=== PATIENT | female | born 1955 | race Two or more races ===

== ENCOUNTER → 2024-03-13 | Outpatient (CLI) | payer OTHER, SELFPAY ==
[2024-03-13 12:42] LABS: Alanine Aminotransferase 11 U/L (10-49); Albumin, Serum 4.5 gm/dL (3.4-4.8); Albumin/Globulin Ratio 1.7 (1.2-2.2); Alkaline Phosphatase 103 U/L (46-116); Anion Gap 6 (7-16); Aspartate Amino Transferase 13 U/L (0-34); BUN/Creatinine Ratio 17 Ratio (12-20); Bilirubin,Total 0.5 mg/dL (0.3-1.2); Blood Urea Nitrogen 12 mg/dL (9-23); Calcium 9.2 mg/dL (8.3-10.6); Calcium (Corrected) 9.2 mg/dL (8.5-10.1); Carbon Dioxide 31.3 mMol/L (20.0-31.0); Chloride 104 mMol/L (98-107); Creatinine (Component) 0.7 mg/dL (0.6-1.3); Globulin 2.7 gm/dL (2.3-3.5); Glucose 105 mg/dL (74-106); Osmolality,Calculated 280 (275-295); Potassium 4.6 mMol/L (3.4-5.1); Sodium 141 mMol/L (136-145); Total Protein 7.2 gm/dL (5.7-8.2); eGFR > 60 See Note
== END | disposition home or self-care (01) ==
LOC: COPL 11:34
PROVIDERS: PCP Internal Medicine; Referring Provider Internal Medicine; Visit Provider Internal Medicine
DX: E78.00 Pure hypercholesterolemia, unspecified (principal); K21.9 Gastro-esophageal reflux disease without esophagitis; K59.00 Constipation, unspecified; M19.049 Primary osteoarthritis, unspecified hand; M54.59 Other low back pain; M65.331 Trigger finger, right middle finger; M77.00 Medial epicondylitis, unspecified elbow; M81.0 Age-related osteoporosis without current pathological fracture; Z79.83 Long term (current) use of bisphosphonates
CPT/HCPCS: 36415; 80053

== ENCOUNTER → 2024-04-17 | Outpatient (CLI) | payer OTHER, SELFPAY ==
--- NOTE | 2024-04-17 11:30 | XR_ITS ---
Examination: Abdomen sonogram, Limited Date and time of exam: April 17, 2024 1141 hours INDICATIONS: Onset right upper abdominal pain beginning 4 months ago Technique: Real-time ybarra scale transabdominal sonographic images of the upper abdomen obtained. Findings: Absent gallbladder Common bile duct 0.8 cm no stones Pancreatic head 2.4 cm Liver 13.1 cm fatty infiltration no focal liver lesions Normal hepatopedal portal venous flow patent IVC IMPRESSION: Absent gallbladder Common bile duct 0.8 cm no common bile duct stones noted
== END | disposition home or self-care (01) ==
PROVIDERS: PCP Internal Medicine; Referring Provider Specialist; Visit Provider Specialist
DX: R10.32 Left lower quadrant pain (principal); R11.0 Nausea; R10.13 Epigastric pain; Z90.49 Acquired absence of other specified parts of digestive tract
CPT/HCPCS: 76705

== ENCOUNTER 2024-05-10 10:00 | Day surgery (SDC) | payer OTHER, SELFPAY ==
[2024-05-09 14:02] VITALS: BMI 28.2
[2024-05-10] VITALS (8 sets, daily range): BP systolic 127–177; BP diastolic 57–85; PULSE 45–61; RESP 13–20; TEMP 36.3–36.8; O2SAT 94–98; BMI 26.0
[2024-05-10] MEDS: SODIUM CHLORIDE 0.9% 500 ML 500 ML 20 ML IV (12:10)
[2024-05-10] MEDS: MIDAZOLAM INJ 1 MG/ML VIAL 2 ML 2 MG IV (12:15)
[2024-05-10] MEDS: fentaNYL CIT INJ 50 mCg/ML AMP 2ML IV (12:15)
[2024-05-10] MEDS: DiphenhydrAMINE INJ 50 MG/ML VIAL 25 MG IV (12:15)
== END 2024-05-10 13:10 | disposition home or self-care (01) ==
PROVIDERS: PCP Internal Medicine; Referring Provider Specialist; Visit Provider Specialist
PROC: (CPT 43239; principal; 2024-05-10 11:15)
DX: K20.90 Esophagitis, unspecified without bleeding (principal); I85.00 Esophageal varices without bleeding; K29.70 Gastritis, unspecified, without bleeding
CPT/HCPCS: 43239; A4649; J1200; J2250; J3010; J7040

== ENCOUNTER → 2024-06-12 | Outpatient (CLI) | payer OTHER, SELFPAY ==
[2024-06-12 12:02] LABS: Alanine Aminotransferase < 7 U/L (10-49); Albumin, Serum 4.6 gm/dL (3.4-4.8); Alkaline Phosphatase 126 U/L (46-116); Anion Gap 7 (7-16); Aspartate Amino Transferase 15 U/L (0-34); BUN/Creatinine Ratio 11 Ratio (12-20); Bilirubin,Direct 0.2 mg/dL (0.0-0.3); Bilirubin,Total 0.8 mg/dL (0.3-1.2); Blood Urea Nitrogen 8 mg/dL (9-23); Calcium 9.1 mg/dL (8.3-10.6); Carbon Dioxide 28.5 mMol/L (20.0-31.0); Cardiac Risk Estimate 4.7 RATIO (3.7-5.6); Chloride 105 mMol/L (98-107); Cholesterol 214 mg/dL (132-200); Creatinine (Component) 0.7 mg/dL (0.6-1.3); Free T4 (Free Thyroxine) 1.06 ng/dL (0.89-1.76); Glucose 105 mg/dL (74-106); HDL Cholesterol 46 mg/dL (40-60); LDL Cholesterol,Calculated 139 mg/dL (0-130); Osmolality,Calculated 277 (275-295); Sodium 140 mMol/L (136-145); Total Protein 7.5 gm/dL (5.7-8.2); Triglycerides 144 mg/dL (30-150); eGFR > 60 See Note
[2024-06-12 12:08] LABS: Basophils % (Auto) 0 % (0-2.5); Eosinophils % (Auto) 1 % (0-10); Hematocrit 40.4 % (36.0-46.0); Hemoglobin 13.5 g/dL (12.0-16.0); Immature Granulocytes % (Auto) 0 % (0-0); Immature Granulocytes Auto 0.02 Thou/mm3 (0.00-0.00); Lymphocytes # (Auto) 1.9 Thou/mm3 (1.0-4.8); Lymphocytes % (Auto) 24 % (10-50); Mean Corpuscular HGB Conc 33.4 g/dl (31.0-37.0); Mean Corpuscular Hemoglobin 30.4 pg (25.0-35.0); Mean Corpuscular Volume 91 fL (80-100); Monocytes # (Auto) 0.7 Thou/mm3 (0.0-0.8); Monocytes % (Auto) 8 % (0-12); Neutrophils # (Auto) 5.6 Thou/mm3 (1.8-7.7); Neutrophils % (Auto) 67 % (37-80); Nucleated Red Blood Cell % 0 /100 WBC (0); Platelet Count 224 Thou/mm3 (140-440); RDW Standard Deviation 44.2 fL (36.4-46.3); Red Blood Count 4.44 Miln/mm3 (4.00-5.20); White Blood Count 8.3 Thou/mm3 (3.6-11.0)
== END | disposition home or self-care (01) ==
LOC: COPL 11:08
PROVIDERS: PCP Internal Medicine; Referring Provider Internal Medicine Cardiovascular Disease; Visit Provider Internal Medicine Cardiovascular Disease
DX: E07.9 Disorder of thyroid, unspecified (principal); E78.5 Hyperlipidemia, unspecified; I10 Essential (primary) hypertension
CPT/HCPCS: 36415; 80048; 80061; 80076; 84439; 84443; 85025

== ENCOUNTER → 2025-01-02 | Outpatient (CLI) | payer OTHER, SELFPAY ==
--- NOTE | 2025-01-02 | XR_ITS ---
Examination: Bilateral hips, AP pelvis, 5 views Technique: AP, lateral views both hips, AP pelvis, 5 views Exam date and time: January 02, 2025, 1126 hours INDICATIONS: Bilateral hip pain several years FINDINGS: Significant osteopenia No right or left hip fracture or hip dislocation Mild narrowing hip joints Bones of the pelvis intact IMPRESSION: Mild narrowing hip joints
--- NOTE | 2025-01-02 | XR_ITS ---
Examination: Lumbar spine, 5 views Technique: Lumbar spine AP, lateral, coned lateral lower lumbar spine, bilateral obliques 5 views Exam date and time: January 02, 2025, 1126 hours INDICATIONS: Low back pain several years, history osteoporosis FINDINGS: Severe osteopenia Moderate diffuse facet arthropathy No lumbar fracture No spondylolisthesis Mild disc narrowing L5-S1 IMPRESSION: Severe osteopenia Mild disc narrowing L5-S1
== END | disposition home or self-care (01) ==
LOC: CDIM 10:36
PROVIDERS: PCP Nurse Practitioner Family; Referring Provider Nurse Practitioner Family; Visit Provider Nurse Practitioner Family
DX: M85.88 Other specified disorders of bone density and structure, other site (principal); M48.07 Spinal stenosis, lumbosacral region; M25.852 Other specified joint disorders, left hip; M25.851 Other specified joint disorders, right hip
CPT/HCPCS: 72110; 73523